=== PATIENT | female | born 1990 | race Caucasian/White ===

== ENCOUNTER 2017-04-02 16:21 | Emergency (ER) | payer BC ==
[~2017-04-02] VITALS: Ht 152.4 cm; Wt 72.6 kg
[~2017-04-02 16:21] MED LIST: ACETAMINOPHEN-1 EAC1 PO; AMOXICILLIN 50500 MG PO; HYDROXYZINE HCL25 M1 PO; NAPROSYN500 MG PO; PREDNISONE 20 M20 MG PO; PROAIR HFA8.5 GM INH; PROAIR RESPICL90 MCG IH; PROMETH-CODEIN 65 ML PO; PROMETHAZINE D480 ML PO; PROZAC10 MG PO; TESSALON PERLE100 MG PO; ZPAK PO
[2017-04-02 17:10] VITALS: BP 142/83
== END 2017-04-02 17:10 | disposition home or self-care (01) ==
LOC: M.ERS 16:21
DX: S46.812A Strain of other muscles, fascia and tendons at shoulder and upper arm level, left arm, initial encounter (principal); F17.210 Nicotine dependence, cigarettes, uncomplicated; I10 Essential (primary) hypertension; F41.9 Anxiety disorder, unspecified; F32.9 Major depressive disorder, single episode, unspecified; Z88.6 Allergy status to analgesic agent; Z98.890 Other specified postprocedural states; X50.0XXA Overexertion from strenuous movement or load, initial encounter; Y93.89 Activity, other specified; Y92.89 Other specified places as the place of occurrence of the external cause; Y99.8 Other external cause status

== ENCOUNTER 2017-04-05 16:54 | Emergency (ER) | payer BC ==
[~2017-04-05] VITALS: Ht 152.4 cm; Wt 72.6 kg
[2017-04-05 17:01] VITALS: BP 124/56
== END 2017-04-05 17:33 | disposition home or self-care (01) ==
LOC: M.ERS 16:54
DX: O26.899 Other specified pregnancy related conditions, unspecified trimester (principal); O16.9 Unspecified maternal hypertension, unspecified trimester; O99.340 Other mental disorders complicating pregnancy, unspecified trimester; Z3A.00 Weeks of gestation of pregnancy not specified; M54.12 Radiculopathy, cervical region; S16.1XXA Strain of muscle, fascia and tendon at neck level, initial encounter; Z88.5 Allergy status to narcotic agent; X58.XXXA Exposure to other specified factors, initial encounter; Y93.89 Activity, other specified; Y92.89 Other specified places as the place of occurrence of the external cause; Y99.8 Other external cause status

== ENCOUNTER 2017-06-28 21:30 | Emergency (ER) | payer OTHER ==
[~2017-06-28] VITALS: Ht 152.4 cm; Wt 71.2 kg
[2017-06-28] MEDS ORDERED: LAMICTAL100 MG PO (21:43)
[2017-06-29] MEDS ORDERED: HYDROCODONE-AP1 EAC6 PO (00:27)
[2017-06-29] MEDS ORDERED: NORFLEX100 MG PO (00:27)
[2017-06-29] MEDS ORDERED: NAPROSYN500 MG PO (00:27)
[2017-06-29] MEDS ORDERED: NYSTATIN100000 UNI PO (00:46)
[2017-06-29 00:48] VITALS: BP 126/83
== END 2017-06-29 00:48 | disposition home or self-care (01) ==
LOC: M.ERS 21:30
DX: S13.4XXA Sprain of ligaments of cervical spine, initial encounter (principal); S29.012A Strain of muscle and tendon of back wall of thorax, initial encounter; I10 Essential (primary) hypertension; F31.9 Bipolar disorder, unspecified; F17.210 Nicotine dependence, cigarettes, uncomplicated; Z88.6 Allergy status to analgesic agent; V89.2XXA Person injured in unspecified motor-vehicle accident, traffic, initial encounter; Y93.89 Activity, other specified; Y92.89 Other specified places as the place of occurrence of the external cause; Y99.8 Other external cause status

== ENCOUNTER 2020-12-16 12:20 | Emergency (ER) | payer OTHER ==
[~2020-12-16] VITALS: Ht 152.4 cm; Wt 65.8 kg
[~2020-12-16 12:20] MED LIST changes: +HYDROCODONE-AP1 EAC6 PO; +LAMICTAL100 MG PO; +NORFLEX100 MG PO; +NYSTATIN100000 UNI PO
--- NOTE | 2020-12-16 14:14 | EKG ---
[place] [address] ELECTROCARDIOGRAM REPORT Name: ANTONIA BREWSTER Room: [facility]#: [id number] Admission: 12/16/20 Attend Phys: Discharge: Date of : 88 Date of Service: 12/16/20 1221 Report #: [id number] THIS REPORT FOR: //name// [facility] ED Test Date: 2020-12-16 Test Time: 12:21:25 Pat Name: ANTONIA BREWSTER Department: Room: Gender: F [employer] [place] [employer]: HARDIK : 1990 Requested By: Edinson Luis Order Number: [id number] MD: Leonidas Mcgill Measurements Intervals [place] Rate: 77 P: 41 FL: 164 QRS: 8 QRSD: 96 T: 23 QT: 366 QTc: 415 Interpretive Statements Sinus rhythm No previous ECG available for comparison Electronically Signed On 12-16-2020 14:14:50 CDT by Leonidas Mcgill [email or web address] <ELECTRONICALLY SIGNED> By: Leonidas Mcgill MD, [facility] 12/16/20 1414 1221 1221 Leonidas Mcgill MD, FACC /EPI
[2020-12-16] MEDS ORDERED: PROMETHAZI6.25 MG/5 PO (15:27)
[2020-12-16] MEDS ORDERED: APAP W/CODEINE1 TA2 PO (15:27)
[2020-12-16] MEDS ORDERED: TESSALON PERLE100 MG PO (15:27)
[2020-12-16 16:25] VITALS: BP 115/65
== END 2020-12-16 16:26 | disposition home or self-care (01) ==
LOC: M.ERS 12:20
DX: J06.9 Acute upper respiratory infection, unspecified (principal); Z20.822 Contact with and (suspected) exposure to COVID-19; I10 Essential (primary) hypertension; F32.9 Major depressive disorder, single episode, unspecified; F41.9 Anxiety disorder, unspecified; Z90.49 Acquired absence of other specified parts of digestive tract; Z79.899 Other long term (current) drug therapy; Z88.5 Allergy status to narcotic agent